=== PATIENT | female | born 1950 | race Caucasian/White ===

== ENCOUNTER 2017-01-10 18:39 | Observation (INO) | payer MEDICARE, OTHER ==
[~2017-01-10] VITALS: Ht 157.5 cm; Wt 68.7 kg
[~2017-01-10 18:39] MED LIST: ATENOLOL25 MG PO; BYSTOLIC PO; BYSTOLIC10 MG PO; BYSTOLIC2.5 MG PO; CYANOCOBAL1000 MCG/1 IM; EVISTA 60MG60 MG/TAB PO; IBUPROFEN800 MG PO; MAXALT MLT5 MG PO; NAPROXEN ER500 MG PO; PROVENTIL0.09 MG/A1 IH; ULTRAM 50MG TAB50 MG PO; VITAMIN D PO; VITAMIN D1000 IU PO; ZOMIG2.5 MG PO; [UNRECOGNIZED DRUG - REMARK]
[2017-01-10] MEDS ORDERED: TOPAMAX50 MG PO (18:54)
[2017-01-10] MEDS ORDERED: ZOMIG 2.5MG2.5 MG PO (19:31)
[2017-01-10 19:54] LABS: BASO % 0.4 % (0.0-2.0); EOS # 0.1 (0.0-0.7); EOS % 1.8 % (0-4.0); GRAN # 4.5 (1.4-6.5); GRAN % 66.9 % (42.2-75.2); LYMPH # 1.7 (1.2-3.4); LYMPH % 24.5 % (20.0-51.0); MEAN CELL VOLUME 88 fl (80.0-100.0); MEAN CORPUSCULAR HEMOGLOBIN 30 pg (27.0-31.0); MEAN CORPUSCULAR HGB CONC 34 g/dl (33.0-37.0); MEAN PLATELET VOLUME 11.2 fl (7.4-10.4); MONO # 0.4 (0.1-0.6); MONO % 6.1 % (1.7-9.3); PLATELET COUNT 195 K/mm3 (130-400); REDCELL DISTRIBUTION WIDTH-CV 12.9 % (11.5-14.5); WHITE BLOOD COUNT 6.7 K/mm3 (4.8-10.8)
[2017-01-10 20:05] LABS: ADJUSTED CALCIUM 9.7 mg/dL (8.4-10.2); ALBUMIN 3.9 gm/dL (3.5-5.0); BILIRUBIN,TOTAL 1.5 mg/dL (0.0-1.0); CALCIUM 9.6 mg/dL (8.4-10.2); CREATININE, serum 1.23 mg/dL (0.52-1.25); POTASSIUM 4.2 mmol/L (3.4-5.0); TOTAL PROTEIN 6.6 gm/dL (6.4-8.2)
[2017-01-10 20:14] LABS: PH 6 (5-8); SQUAMOUS EPITHELIAL 0-2 /hpf; URINE APPEARANCE Cloudy; URINE BACTERIA None Seen /hpf; URINE BILIRUBIN Negative (NEGATIVE); URINE BLOOD Negative (NEGATIVE); URINE COLOR Yellow; URINE GLUCOSE Negative (NEGATIVE); URINE KETONE Negative (NEGATIVE); URINE RBC 0-2 /hpf; URINE UROBILINOGEN Negative (NEGATIVE)
[2017-01-10 23:42] VITALS: BP 150/70; PULSE 61; TEMP 97.1
[2017-01-11] VITALS (14 sets, daily range): BP systolic 110–174; BP diastolic 52–94; PULSE 61–90; TEMP 97–98.5
[2017-01-11] MEDS ORDERED: SYSTANE 0.4%-0.1 SOL OP (00:09)
[2017-01-11] MEDS ORDERED: OMNIPRED 10 ML10 ML OS (00:11)
[2017-01-11] MEDS ORDERED: OMNIPRED 10 ML10 ML OD (00:13)
[2017-01-11 08:23] LABS: ADJUSTED CALCIUM 9.6 mg/dL (8.4-10.2); ALBUMIN 3.5 gm/dL (3.5-5.0); BILIRUBIN,TOTAL 1.4 mg/dL (0.0-1.0); CALCIUM 9.2 mg/dL (8.4-10.2); CREATININE, serum 1.09 mg/dL (0.52-1.25); POTASSIUM 4.1 mmol/L (3.4-5.0); TOTAL PROTEIN 6.1 gm/dL (6.4-8.2)
[2017-01-12 02:51] VITALS: BP 115/55; PULSE 70; TEMP 98.4
[2017-01-12 04:52] VITALS: BP 97/49; PULSE 64; TEMP 97.7
[2017-01-12 09:00] VITALS: BP 129/69; PULSE 69
== END 2017-01-12 11:08 | disposition home or self-care (01) ==
LOC: COL.ER 18:39 → SURG 22:53
PROVIDERS: Emergency Medicine; Surgery
DX: K80.00 Calculus of gallbladder with acute cholecystitis without obstruction (principal)
CPT/HCPCS: G0378; J0330; J0690; J0696; J1100; J1170; J1885; J2270; J2405; J2704; J3010; J7030; J7120; Q9967

== ENCOUNTER → 2017-03-04 | Outpatient (CLI) | payer MEDICARE, OTHER ==
[~2017-03-04] MED LIST changes: +OMNIPRED 10 ML10 ML OD; +OMNIPRED 10 ML10 ML OS; +SYSTANE 0.4%-0.1 SOL OP; +TOPAMAX50 MG PO; +ZOMIG 2.5MG2.5 MG PO
== END ==
LOC: MC.RAD 13:38
DX: Z12.31 Encounter for screening mammogram for malignant neoplasm of breast (principal)

== ENCOUNTER → 2018-03-10 | Outpatient (CLI) | payer MEDICARE, OTHER | LOC: MC.RAD 14:40 | DX: Z12.31 Encounter for screening mammogram for malignant neoplasm of breast (principal) ==

== ENCOUNTER → 2019-03-11 | Outpatient (CLI) | payer MEDICARE, OTHER | LOC: MC.RAD 08:41 | DX: Z12.31 Encounter for screening mammogram for malignant neoplasm of breast (principal) ==

== ENCOUNTER → 2020-03-17 | Outpatient (CLI) | payer MEDICARE, OTHER | LOC: MC.RAD 16:50 | DX: Z12.31 Encounter for screening mammogram for malignant neoplasm of breast (principal) ==

== ENCOUNTER → 2021-03-21 | Outpatient (CLI) | payer MEDICARE, OTHER | LOC: MC.RAD 15:30 | DX: Z12.31 Encounter for screening mammogram for malignant neoplasm of breast (principal) ==

== ENCOUNTER → 2022-03-29 | Outpatient (CLI) | payer MEDICARE, OTHER | LOC: MC.RAD 10:56 | DX: Z12.31 Encounter for screening mammogram for malignant neoplasm of breast (principal) ==

== ENCOUNTER → 2024-06-03 | Outpatient (CLI) | payer MEDICARE | LOC: MC.RAD 10:27 | DX: Z12.31 Encounter for screening mammogram for malignant neoplasm of breast (principal) ==